=== PATIENT | male | born 1950 | race Caucasian/White ===

== ENCOUNTER → 2017-06-27 | Outpatient (CLI) | payer MEDICARE, BC ==
[~2017-06-27] MED LIST: ALEVE 220MG220 MG PO; ASPIRIN 81M81 MG/TA2 PO; ATORVASTATIN; CARDIZEM CD 24240 MG PO; CENTRUM SILVER1 CTB PO; CEPHALEXIN500 M1 PO; CIALIS10 MG PO; CIPRO 500MG TA500 MG PO; CLEOCIN HCL300 MG PO; DIGITEK0.125 MG PO; DOXYCYCLINE 10100 MG PO; ELIQUIS 5MG PO; FLONASE NASAL S16 GM NS; GLUCOSAMINE CHO1 CAP PO; KLOR-CON M2020 MEQ PO; LEVAQUIN 750MG750 M1 PO; LIPITOR 40MG TA40 MG PO; MULTIVITAMIN1 CTB PO; NAPROSYN 2250 MG/TAB PO; NORCO 325 MG-51 TAB PO; NORCO 325 MG-7.1 TAB PO; PRADAXA 150MG150 MG PO; PROTONIX 40MG T40 MG PO; SYNTHROID 0.0.025 MG PO; SYNTHROID 0.10.15 MG PO; TAMIFLU 75MG75 MG PO; TENORMIN 2525 MG/TAB PO; TIKOSYN0.25 MG PO; TYLENOL 325MG325 MG PO; ZOCOR 40MG40 MG PO
== END ==
LOC: COL.RAD 12:29
DX: Z01.89 Encounter for other specified special examinations (principal)

== ENCOUNTER → 2017-06-30 | Outpatient (CLI) | payer MEDICARE, BC | LOC: COL.RAD 08:42 | DX: M19.012 Primary osteoarthritis, left shoulder (principal); M75.82 Other shoulder lesions, left shoulder; M75.52 Bursitis of left shoulder ==

== ENCOUNTER → 2017-07-16 | Outpatient (CLI) | payer MEDICARE, BC | LOC: COL.RAD 13:57 | DX: I77.810 Thoracic aortic ectasia (principal) | CPT/HCPCS: Q9967 ==

== ENCOUNTER 2018-04-24 10:41 | Day surgery (SDC) | payer MEDICARE, BC ==
[~2018-04-24] VITALS: Ht 182.9 cm; Wt 92.3 kg
[2018-04-24 11:23] VITALS: BP 136/89; PULSE 69; TEMP 97.8
[2018-04-24] MEDS ORDERED: TIROSINT137 MC1 PO (11:47)
[2018-04-24] MEDS ORDERED: EPA FISH OIL1 SGL PO (11:51)
[2018-04-24 14:10] VITALS: BP 117/72; PULSE 66; TEMP 98.3
[2018-04-24 14:25] VITALS: BP 107/77; PULSE 61
[2018-04-24 14:45] VITALS: BP 112/61; PULSE 67
== END 2018-04-24 15:03 | disposition home or self-care (01) ==
LOC: SDCO 10:41
DX: Z12.11 Encounter for screening for malignant neoplasm of colon (principal); Z80.0 Family history of malignant neoplasm of digestive organs; E78.00 Pure hypercholesterolemia, unspecified; Z88.0 Allergy status to penicillin
CPT/HCPCS: J2250; J3010; J7030

== ENCOUNTER → 2019-01-13 | Outpatient (CLI) | payer MEDICARE, BC ==
--- NOTE | 2019-01-11 08:32 | NUR ---
instructed to come in at 0915
[~2019-01-13] MED LIST changes: +EPA FISH OIL1 SGL PO; +TIROSINT137 MC1 PO
== END ==
LOC: COL.RAD 08:40
DX: M89.8X1 Other specified disorders of bone, shoulder (principal); Z95.0 Presence of cardiac pacemaker

== ENCOUNTER → 2020-01-03 | Outpatient (CLI) | payer MEDICARE, BC | LOC: COL.RAD 08:03 | DX: M25.512 Pain in left shoulder (principal); M25.511 Pain in right shoulder ==

== ENCOUNTER 2021-07-10 21:03 | Emergency (ER) | payer MEDICARE, BC ==
[~2021-07-10] VITALS: Ht 182.9 cm; Wt 95.5 kg
[2021-07-10 21:11] VITALS: TEMP 97.8
[2021-07-10 21:54] LABS: HEMATOCRIT 42.9 % (42.0-52.0); HEMOGLOBIN 14.2 g/dl (13.5-18.0); MEAN CELL VOLUME 86 fl (80.0-100.0); MEAN CORPUSCULAR HEMOGLOBIN 28 pg (27-31); MEAN CORPUSCULAR HGB CONC 33 g/dl (33.0-37.0); MEAN PLATELET VOLUME 10.2 fl (7.4-10.4); PLATELET COUNT 237 K/mm3 (130-400); RED BLOOD COUNT 5.02 M/mm3 (4.20-5.60); REDCELL DISTRIBUTION WIDTH-CV 14.1 % (11.5-14.5)
[2021-07-10] MEDS ORDERED: ELIQUIS 5MG PO (21:56)
[2021-07-10 22:16] LABS: ALANINE AMINOTRANSFERASE 34 U/L (0-55); ALBUMIN 3.7 gm/dL (3.4-4.8); ALKALINE PHOSPHATASE 88 U/L (40-150); ANION GAP 11 mmol/L (7-16); AST,SGOT 23 U/L (5-34); BLOOD UREA NITROGEN 22 mg/dL (8-26); CALCIUM 9.1 mg/dL (8.4-10.2); CARBON DIOXIDE 25 mmol/L (23-31); CHLORIDE 105 mmol/L (98-107); CREATINE KINASE 52 U/L (30-200); CREATININE, serum 1.21 mg/dL (0.72-1.25); GLUCOSE 113 mg/dL (70-99); MAGNESIUM 2.1 mg/dL (1.6-2.6); POTASSIUM 3.8 mmol/L (3.5-4.5); SODIUM 141 mmol/L (136-145); TOTAL PROTEIN 6.6 gm/dL (6.2-8.1)
[2021-07-10 22:28] LABS: BILIRUBIN,TOTAL 0.4 mg/dL (0.2-1.2)
[2021-07-10 22:35] LABS: THYROID STIMULATING HORMONE 1.113 uIU/mL (0.350-4.940)
[2021-07-10 22:42] LABS: TROPONIN-I < 0.010 ng/mL (0.00-0.033)
[2021-07-10 22:48] LABS: BAND 3 % (0-10); EOSINOPHIL 5 % (0-4); LYMPHOCYTE 47 % (20.0-51.0); METAMYELOCYTE 1 % (0-0); NEUTROPHILS 31 % (42.0-75.2); PLATELET ESTIMATE NORMAL (NORMAL)
[2021-07-10 23:15] VITALS: BP 155/88; PULSE 61
== END 2021-07-10 23:22 | disposition home or self-care (01) ==
LOC: COL.ER 21:03
PROVIDERS: Emergency Medicine
DX: R03.0 Elevated blood-pressure reading, without diagnosis of hypertension (principal); I48.91 Unspecified atrial fibrillation; E78.00 Pure hypercholesterolemia, unspecified; E03.9 Hypothyroidism, unspecified; Z95.0 Presence of cardiac pacemaker; Z95.818 Presence of other cardiac implants and grafts; Z79.899 Other long term (current) drug therapy; Z79.890 Hormone replacement therapy; Z79.01 Long term (current) use of anticoagulants
CPT/HCPCS: J7030

== ENCOUNTER 2024-01-02 14:06 | Day surgery (SDC) | payer MEDICARE, BC ==
[~2024-01-02] VITALS: Ht 182.9 cm; Wt 92.2 kg
[~2024-01-02 14:06] MED LIST changes: +ASPIRIN E.C. 8181 MG PO; +MULTIPLE VITAMI1 CAP PO; -MULTIVITAMIN1 CTB PO; +NORVASC2.5 MG PO; +Ondansetron 4 MG/2 ML VIAL IV PRN; +TIROSINT125 MC1 PO; +VITAMIN C500 MG PO
[2024-01-02] MEDS ORDERED: LR 1,000 ML IV ONE (15:00)
[2024-01-02 15:12] VITALS: BP 117/74; PULSE 66; TEMP 97
[2024-01-02 15:40] VITALS: BP 103/61; PULSE 74; TEMP 97.1
[2024-01-02 15:55] VITALS: BP 119/72; PULSE 74
--- NOTE | 2024-01-02 16:10 | NUR ---
1540 RETURNS TO ROOM 5 PER CART. AWAKE, ALERT. RESP UNLABORED. AMBULATES TO RECLINER WITH STANDBY ASSIST. DENIES NAUSEA, ABD/CHEST PAIN OR DYSPHAGIA. VITAL SIGNS OBTAINED. CALL LIGHT AT SIDE. IN ROOM 1543 DOREEN MCCOY HERE TO VISIT WITH PATIENT [address] WITHOUT NAUSEA. SWALLOWS WITHOUT DIFFICULTY. DISCHARGE INSTRUCTIONS REVIEWED. PATIENT VERBALIZES UNDERSTANDING. COPY PROVIDED IN DISCHARGE FOLDER 1603 DRESSES SELF
== END 2024-01-02 16:10 | disposition home or self-care (01) ==
LOC: SDCO 14:06
DX: K22.2 Esophageal obstruction (principal); K44.9 Diaphragmatic hernia without obstruction or gangrene; K21.00 Gastro-esophageal reflux disease with esophagitis, without bleeding; Z95.0 Presence of cardiac pacemaker
CPT/HCPCS: C1726; J7120

== ENCOUNTER → 2024-02-25 | Outpatient (CLI) | payer MEDICARE, BC ==
[~2024-02-25] MED LIST changes: -Ondansetron 4 MG/2 ML VIAL IV PRN
[2024-02-25 16:56] LABS: LYMPHOCYTE 27 % (20.0-51.0); NEUTROPHILS 65 % (42.0-75.2); PLATELET ESTIMATE NORMAL (NORMAL)
[2024-02-25 16:57] LABS: OVALOCYTES 1+; TEAR DROP CELLS 1+
== END ==
LOC: ZCOL.LAB 15:25
PROVIDERS: Family Medicine
DX: D64.9 Anemia, unspecified (principal)

== ENCOUNTER → 2024-04-29 | Outpatient (REF) | payer MEDICARE, BC ==
[2024-04-29 20:20] LABS: BAND 8 % (0-10); LYMPHOCYTE 9 % (20.0-51.0); METAMYELOCYTE 2 % (0-0); NEUTROPHILS 78 % (42.0-75.2)
[2024-04-29 20:21] LABS: ANISOCYTOSIS 1+
[2024-04-29 20:23] LABS: HYPOCHROMIA 2+; OVALOCYTES 1+
[2024-04-29 20:25] LABS: PLATELET ESTIMATE NORMAL (NORMAL); SCHISTOCYTES 1+
== END ==
LOC: COL.LAB 19:20
PROVIDERS: Family Medicine
DX: D64.9 Anemia, unspecified (principal)